=== PATIENT | female | born 1970 | race Two or more races ===

== ENCOUNTER 2021-04-04 14:04 | Emergency (ER) | payer OTHER ==
[~2021-04-04] VITALS: Ht 157.5 cm; Wt 68.9 kg
[2021-04-04] MEDS ORDERED: PROAIR HFA8.5 GM (14:19)
== END 2021-04-04 22:25 | disposition home or self-care (01) ==
LOC: ER 14:04
DX: J45.902 Unspecified asthma with status asthmaticus (principal); R06.02 Shortness of breath; Z03.818 Encounter for observation for suspected exposure to other biological agents ruled out